=== PATIENT | male | born 1955 | race Caucasian/White ===

== ENCOUNTER → 2019-07-23 09:42 | Outpatient (CLI) | payer MEDICARE, SELFPAY ==
--- NOTE | ~2019-07-23 | XR_ITS ---
EXAMINATION: XR chest 2V EXAM DATE: 07/23/2019 09:56 INDICATION: Productive cough. Wheezing. TECHNIQUE: Frontal and lateral projections of the chest obtained and reviewed. Comparison is made to prior examination from 09/24/2014. FINDINGS: Mild cardiomegaly. Coronary artery stent. There is no pneumothorax suspected. There are no pleural effusions. There are no osseous abnormalities identified. There is no focal acute air space disease. IMPRESSION: 1. Mild cardiomegaly. Reviewed, dictated and finalized at location B. CARE SPECIALIST IMPRESSION: 1. Mild cardiomegaly.
== END ==
PROVIDERS: PCP Family Medicine; Visit Provider Family Medicine
DX: I51.7 Cardiomegaly (principal); R05 Cough
CPT/HCPCS: 71046

== ENCOUNTER → 2020-05-20 10:21 | Outpatient (CLI) | payer MEDICARE, SELFPAY ==
--- NOTE | ~2020-05-20 | CT_ITS ---
EXAMINATION: CT lung screening DATE: 05/20/2020 10:38 INDICATION: Personal history of tobacco dependence. Lung cancer screening. TECHNIQUE: Computed tomography (CT) of the chest was performed without intravenous contrast. The dose -length product was 315.14 mGy-cm. Automated exposure control and iterative reconstruction technique were employed. COMPARISON: CT dated 04/18/2019 FINDINGS: There is a cluster of nodules containing calcifications in the left upper lobe adjacent to the fissure, likely granulomatous disease. No significant interval change to these nodules. 3 mm righ t lower lobe nodule, image 78, unchanged. No new pulmonary nodules or masses. No pneumothorax. No sig nificant pleural or pericardial effusion. No thoracic lymphadenopathy. There is atherosclerosis of th e aorta and coronary arteries. No endobronchial lesions. No pneumothorax. Small left lower lobe nodul es measuring 3 mm or less are stable. Heart size is normal. Mild thoracic spondylosis. IMPRESSION: 1. Lung-RADS category 2: Benign appearance or behavior. Continue annual screening with noncontrast lo w-dose chest CT in 12 months. Reviewed, dictated and finalized at location A. OLE MANAGER IMPRESSION: 1. Lung-RADS category 2: Benign appearance or behavior. Continue annual screeni ng with noncontrast low-dose chest CT in 12 months.
== END ==
PROVIDERS: PCP Family Medicine; Visit Provider Family Medicine
DX: Z12.2 Encounter for screening for malignant neoplasm of respiratory organs (principal); Z87.891 Personal history of nicotine dependence
CPT/HCPCS: G0297

== ENCOUNTER → 2021-05-25 09:12 | Outpatient (CLI) | payer MEDICARE, SELFPAY ==
--- NOTE | ~2021-05-25 | CT_ITS ---
EXAMINATION: CT lung screening DATE: 05/25/2021 09:30 INDICATION: Nicotine dependence TECHNIQUE: Computed tomography (CT) of the chest was performed without intravenous contrast. The dose -length product was 292.62 mGy-cm. Automated exposure control and iterative reconstruction technique were employed. COMPARISON: CT dated 05/20/2020 FINDINGS: No significant pleural or pericardial effusion. Heart size is normal. Small hiatal hernia. No thoracic lymphadenopathy. There are cholecystectomy clips. Otherwise, unremarkable upper abdomen. Stable left fissural nodules measuring 3 mm or less. Stable subsolid 3 mm right lower lobe nodule. Th ere is a second subsolid nodule in the right lower lobe measuring 4 mm which is unchanged. There is a 2 mm right lower lobe nodule.. No new pulmonary nodules or masses. No endobronchial lesions. No pneu mothorax. There is a stable 3 mm left lower lobe nodule. Mild thoracic spondylosis. No focal lytic or blastic lesions. IMPRESSION: 1. Lung-RADS category 2: Benign appearance or behavior. Continue annual screening with noncontrast lo w-dose chest CT in 12 months. Reviewed, dictated and finalized at location B. SAW OPERATOR HELPER IMPRESSION: 1. Lung-RADS category 2: Benign appearance or behavior. Continue annual screeni ng with noncontrast low-dose chest CT in 12 months.
== END ==
PROVIDERS: PCP Physician Assistant; Visit Provider Physician Assistant
DX: Z12.2 Encounter for screening for malignant neoplasm of respiratory organs (principal); Z87.891 Personal history of nicotine dependence
CPT/HCPCS: 71271

== ENCOUNTER → 2022-07-07 11:26 | Outpatient (CLI) | payer MEDICARE, SELFPAY ==
--- NOTE | ~2022-07-07 | CT_ITS ---
EXAMINATION: CT lung screening DATE: 07/07/2022 11:37 INDICATION: Personal history of nicotine dependence, current smoker with 37 pack year history TECHNIQUE: Computed tomography (CT) of the chest was performed without intravenous contrast. The dose -length product (DLP) was 268.37 mGy-cm. Automated exposure control and iterative reconstruction tech [employer]ave[employer] were employed. COMPARISON: 05/25/2021 FINDINGS: There is mild emphysema. Stable pulmonary nodules in the lower lobes measure up to 3 mm. Th e a chronic calcified nodule is noted in the left upper lobe. Lungs are free of acute opacities. No p leural effusion or pneumothorax. No pathologically enlarged thoracic lymph nodes are identified. The heart size is normal. There is a stable nodule of the left thyroid lobe. Calcified coronary artery at herosclerosis is noted. There is mild thoracic spondylosis. IMPRESSION: 1. Lung-RADS category 2: Benign appearance or behavior. Continue annual screening with noncontrast lo w-dose chest CT in 12 months. Reviewed, dictated and finalized at location B. TOR MECHANIC APPRENTICE IMPRESSION: 1. Lung-RADS category 2: Benign appearance or behavior. Continue annual screeni ng with noncontrast low-dose chest CT in 12 months.
== END ==
PROVIDERS: PCP Family Medicine; Visit Provider Nurse Practitioner
DX: Z12.2 Encounter for screening for malignant neoplasm of respiratory organs (principal); Z87.891 Personal history of nicotine dependence
CPT/HCPCS: 71271

== ENCOUNTER 2023-04-14 09:09 | Emergency (ER) | payer MEDICARE, SELFPAY ==
[2023-04-14 09:25] VITALS: BP 123/70; PULSE 68; RESP 16; TEMP 36.4; O2SAT 96
--- NOTE | 2023-04-14 09:47 | ED.GENADULT ---
HPI - General Adult General Chief complaint: Extremity Problem,Nontraumatic Stated complaint: Leg pain Time Seen by Provider: 04/14/23 09:34 Source: patient and RN notes reviewed Mode of arrival: ambulatory Limitations: no limitations History of Present Illness HPI narrative: Patient presents today complaining of right lateral calf pain that radiates to his toes and up to the right buttocks. Symptoms began 2 days ago. Denies numbness or tingling. Denies loss of bowel bladder control. Patient rates his pain 7/10 and has tried no medication for symptoms prior to arrival as he states, ?I did not think it would help.? Related Data Allergies Allergy/AdvReac Type Severity Reaction Status Date / Time No Known Allergies Allergy Verified 04/14/23 09:19 Review of Systems Review of Systems: CONSTITUTIONAL: Denies body aches, fever, chills, or sweats. EYES: Denies visual changes, redness, or discharge. ENT: Denies rhinorrhea, congestion, sore throat, or otalgia. CARDIOVASCULAR: Denies chest pain, palpitations, or edema. RESPIRATORY: Denies cough or dyspnea. GASTROINTESTINAL: Denies abdominal pain, nausea, vomiting, or diarrhea. GENITOURINARY: Denies dysuria or hematuria. SKIN: Denies rash, itching, or wounds. MUSCULOSKELETAL: + right calf pain NEUROLOGIC: Denies headache, numbness, tingling, or weakness. PSYCH: Denies depression or anxiety. [facility] Past Medical History Medical History Hepatitis C antibody test negative (07/30/17) Surgical History Surgical History H/O cardiac catheterization H/O colonoscopy Hx of cholecystectomy (~2017) Family History Family History Father Patient's father is , Onset Age: 44 Family history of cardiovascular disease Acute myocardial infarction Sibling Family history of elevated blood lipids Social History Social History Smoking packs per day: 0.5 Smoking cigarettes per day: 10.0 Smoking status: Current every day smoker Tobacco type: cigarettes Alcohol intake: current Drinks per week: 2 Alcohol use details: 1-2 drinks per week Drinks Rum Substance use: current Substance use type: marijuana Other substance usage details: socially smokes marijuana Lack of Transportation: No Lack of Food: Never True Current Housing: I Have Housing Concerned About Future Housing: No Difficulty Paying Gas/Electric Bills: No Difficulty Paying for Meds: No Currently Unemployed: No Education: High School Diploma/GED Difficulty w/ Childcare or Family Care: No Living arrangements: with family Additional living arrangements comments: With Spiritual care concerns: No Agree to blood products: Yes Comments At time of signature, I have reviewed and agree with nursing past medical, surgical, social and family history unless otherwise noted. Please see nursing chart for further information. There is no relevant family history pertinent to the presenting complaint Exam Narrative: GENERAL: Well-appearing, well-nourished, and in no acute distress. HEAD: Normocephalic, atraumatic. EYES: EOMI. No redness or drainage. Conjunctivae normal. ENT: Mucous membranes pink and moist. NECK: Normal AROM. CHEST: No respiratory distress. EXTREMITIES: Areas of point tenderness to the lateral calf in a dermatomal distribution of the sciatic nerve that extends proximally to the posterior thigh up to the right SI joint. Distal sensation intact. Saddle sensation intact. Capillary refill normal. Pedal pulses normal. Full range of motion of the hip, knee, and ankle. Negative Homans. No edema, erythema, ecchymosis, or otherwise color change of the right leg. The remainder of the right calf is nontender with the exception
== END 2023-04-14 10:02 | disposition home or self-care (01) ==
PROVIDERS: Emergency Provider Nurse Practitioner; PCP Family Medicine
DX: M54.31 Sciatica, right side (principal); F17.210 Nicotine dependence, cigarettes, uncomplicated; F12.90 Cannabis use, unspecified, uncomplicated
CPT/HCPCS: 99213; G0463

== ENCOUNTER 2023-04-20 09:49 | Emergency (ER) | payer MEDICARE, SELFPAY ==
[2023-04-20 09:57] VITALS: BP 135/69; PULSE 74; RESP 16; TEMP 36.4; O2SAT 96
--- NOTE | 2023-04-20 09:58 | ED.GENADULT ---
HPI - General Adult General Chief complaint: Extremity Problem,Nontraumatic Stated complaint: Right Hip and leg/foot pain Source: patient and RN notes reviewed History of Present Illness HPI narrative: 67-year-old male presents to urgent care with right lateral calf pain that radiates down and up his lateral leg. Patient was seen 6 days ago in urgent care for the same thing and given prednisone and cyclobenzaprine at that time with a dx of sciatica. Patient was also seen at his primary care physician's office 2 days ago for this and was referred to physical therapy which he starts tomorrow morning. Pt states he finished his steroid yesterday morning and his pain returned last night. Denies any new injury or trauma. Denies any fevers, chills, incontinence of urine or stool, weakness, saddle anesthesia, chest pain, SOB, or vomiting. Related Data Home Medications Medication Instructions Recorded Confirmed icosapent ethyl 1 gram capsule 2 g PO BID 04/18/23 04/20/23 (Vascepa) Allergies Allergy/AdvReac Type Severity Reaction Status Date / Time No Known Allergies Allergy Verified 04/20/23 09:54 Review of Systems Review of Systems: Pertinent positives and pertinent negatives per HPI. [facility] Past Medical History Medical History Hepatitis C antibody test negative (07/30/17) Surgical History Surgical History H/O cardiac catheterization H/O colonoscopy Hx of cholecystectomy (~2016) Family History Family History Father Patient's father is , Onset Age: 44 Family history of cardiovascular disease Acute myocardial infarction Sibling Family history of elevated blood lipids Social History Social History (Updated 04/18/23 @ 11:04 by Asuncion Nunes MA) Smoking packs per day: 0.5 Smoking cigarettes per day: 10.0 Smoking status: Current every day smoker Tobacco type: cigarettes Alcohol intake: current Alcohol use details: 1 or 2 a month Substance use: current Substance use type: marijuana Other substance usage details: socially smokes marijuana Lack of Transportation: No Lack of Food: Never True Current Housing: I Have Housing Concerned About Future Housing: No Difficulty Paying Gas/Electric Bills: No Difficulty Paying for Meds: No Currently Unemployed: No Education: High School Diploma/GED Difficulty w/ Childcare or Family Care: No Living arrangements: with family Additional living arrangements comments: With Spiritual care concerns: No Agree to blood products: Yes Comments At the time of my signature, I reviewed and agree with the nursing past medical, surgical, social, and family history. There is no relevant family history pertinent to the patient complaint. Exam Narrative: GENERAL: This is a well-nourished, well-developed patient, in no apparent distress. HEAD: normocephalic, atraumatic. EYES: Sclera clear/white. Vision is grossly intact. EARS: External ears normal, auditory canals clear and without drainage. Hearing grossly intact. NOSE: External nose normal with no obvious nasal discharge, nares without redness, no rhinorrhea. THROAT: Mucous membranes moist, posterior pharynx clear. NECK: Neck supple, non-tender without lymphadenopathy, masses or thyromegaly. CARDIOVASCULAR: Regular rate RESPIRATORY: No respiratory distress SKIN: warm, intact with no suspicious lesions or rash, good texture and turgor. NEURO: awake, alert, and oriented to person, place and time. There were no obvious focal neurologic abnormalities. EXTREMITIES: No clubbing, cyanosis, or edema. No joint tenderness, effusion, or edema noted. no posterior calf pain. BACK: Nontender without deformity or crepitus. No flank tenderness. Course Course Level of Care: [facility] Care Visit Vi
== END 2023-04-20 10:21 | disposition home or self-care (01) ==
PROVIDERS: Emergency Provider Nurse Practitioner Family; PCP Family Medicine
DX: M54.31 Sciatica, right side (principal); F17.210 Nicotine dependence, cigarettes, uncomplicated; F12.90 Cannabis use, unspecified, uncomplicated
CPT/HCPCS: 99213; G0463

== ENCOUNTER 2023-08-08 14:01 | Outpatient (CLI) | payer MEDICARE, SELFPAY ==
--- NOTE | ~2023-08-08 | CT_ITS ---
EXAMINATION: CT lung screening DATE: 08/08/2023 14:32 INDICATION: Z87.891 - Personal history of nicotine dependence TECHNIQUE: Computed tomography (CT) of the chest was performed without intravenous contrast. Addition al 3D reconstructions utilizing coronal maximum intensity projection (MIP) were performed. Automated exposure control and iterative reconstruction technique were employed. The dose-length product was 25 9.72 mGy-cm. COMPARISON: Chest CT dated 07/07/2022 FINDINGS: Mild emphysema. There are a couple calcified nodules in the left lung along with calcified left hilar lymph nodes consistent with old granulomatous disease. There are multiple tiny satellite nodules elzbieta rounding one of these calcified nodules at the lingula. Multiple additional small unchanged bilateral noncalcified pulmonary nodules the largest measuring 5 mm in the right lower lobe. No new or enlargi ng pulmonary nodules identified. No pneumonia, pulmonary edema or pleural effusion. Heart size is nor mal. Atherosclerotic coronary artery calcifications. No pericardial effusion. Thoracic aorta is bigg l in caliber. No pathologically enlarged thoracic lymphadenopathy. Small sliding-type hiatal hernia. Cholecystectomy clips the gallbladder fossa. Mild thoracic spondylosis. IMPRESSION: 1. Lung-RADS category 2: Benign appearance or behavior. Continue annual screening with noncontrast lo w-dose chest CT in 12 months. Reviewed, dictated and finalized at location A. MBLING MOTOR BUILDER IMPRESSION: 1. Lung-RADS category 2: Benign appearance or behavior. Continue annual screeni ng with noncontrast low-dose chest CT in 12 months.
--- NOTE | ~2023-08-08 | US_ITS ---
EXAMINATION: US arterial ankle brachial ind DATE: 08/08/2023 15:09 INDICATION: Peripheral vascular disease TECHNIQUE: Segmental pressures and plethysmographic and Doppler waveforms of the brachial and lower e xtremity arteries were obtained. COMPARISON: None. FINDINGS: Right and left brachial artery pressures of 126 mm Hg and 120 mm Hg, respectively, are concordant (no rmal difference <= 30 mmHg). The right ankle-brachial index (JYOTSNA) is 1.27 (normal >= 0.9-1.0). The right great toe-brachial index (TBI) is 0.43 (normal >= 0.65). Arterial Doppler waveforms are biphasic with brisk systolic upstrokes at both right posterior tibial and dorsalis pedis arteries. The left JYOTSNA is 1.16. The left TBI is 0.34. Arterial Doppler waveforms are biphasic with brisk systol ic upstrokes at both left posterior tibial and dorsalis pedis arteries. IMPRESSION: 1. Arterial occlusive disease to bilateral lower limbs with normal bilateral ABIs but mildly decrease d right and moderately decreased left TBIs. Reviewed, dictated and finalized at location A. LEAD APPLICATION TESTING IMPRESSION: 1. Arterial occlusive disease to bilateral lower limbs with normal bilateral AB Is but mildly decreased right and moderately decreased left TBIs.
== END 2023-08-08 14:02 | disposition home or self-care (01) ==
PROVIDERS: PCP Family Medicine; Visit Provider Nurse Practitioner
DX: Z12.2 Encounter for screening for malignant neoplasm of respiratory organs (principal); Z87.891 Personal history of nicotine dependence; I73.9 Peripheral vascular disease, unspecified
CPT/HCPCS: 71271; 93922

== ENCOUNTER 2023-11-23 14:48 | Outpatient (CLI) | payer MEDICARE, SELFPAY ==
--- NOTE | 2023-11-23 15:25 | ECG_ITS ---
SEE SCANNED COPY FOR CONFIRMED REPORT MTDD
== END 2023-11-23 14:49 | disposition home or self-care (01) ==
LOC: ANHCARD 14:52
PROVIDERS: PCP Family Medicine; Visit Provider Family Medicine
DX: Z01.810 Encounter for preprocedural cardiovascular examination (principal); E78.2 Mixed hyperlipidemia; I70.90 Unspecified atherosclerosis; E66.9 Obesity, unspecified; F17.210 Nicotine dependence, cigarettes, uncomplicated
CPT/HCPCS: 93005

== ENCOUNTER 2024-01-23 08:18 | Outpatient (CLI) | payer MEDICARE, SELFPAY ==
--- NOTE | ~2024-01-23 | NM_ITS ---
EXAMINATION: NM kathrin stress w perfusion DATE: 01/23/2024 11:33 INDICATION: Other forms of dyspnea. Coronary atherosclerosis. TECHNIQUE: Rest images were obtained following intravenous administration of 9.1 mCi Tc99m tetrofosmi n (Myoview). The patient was infused intravenously with Lexiscan (regadenoson). Then, 29.5 mCi Tc99m tetrofosmin (Myoview) was administered intravenously, and stress images were obtained. Data was recon structed into short axis and horizontal and vertical long axis SPECT images. Gated SPECT images were also obtained. COMPARISON: Chest CT 08/08/2023 FINDINGS: There is no definite reversible or fixed perfusion abnormality to suggest ischemia or infar ction. There is no segmental wall motion abnormality. Left ventricular ejection fraction measures 7 0%. IMPRESSION: 1. No definite ischemia or infarct. 2. Normal left ventricular ejection fraction measuring 70%. Reviewed, dictated and finalized at location A.
--- NOTE | 2024-01-23 08:56 | ECHO_ITS ---
Patient Info Name: David Youssef Age: 68 years : 1955 Gender: Male Ht: 71 in Wt: 250 lbs BSA: 2.42 m2 HR: 55 bpm BP: 116 / 71 mmHg Technical Quality: Good Exam Date: 01/23/2024 9:03 AM Exam Location: Echo Lab Patient Status: Outpatient Admit Date: 01/23/2024 Staff Ordering Physician: Scot Perkins DO Organizational Psychologist: Lorri Hoffman RDCS Attending Provider: Scot Perkins DO Referring Physician: Gregorio SLAES; Exam Type: CA echo doppler color flow Study Info Indications R06.09 - Other forms of dyspnea Complete two-dimensional, color flow and Doppler transthoracic echocardiogram is performed. Strain analysis performed. Summary 1. Complete two-dimensional, color flow and Doppler transthoracic echocardiogram is performed. 2. Left ventricular chamber dimension is normal. 3. Left ventricular systolic function is normal, estimated at 60-65%. 4. There is mildly increased left ventricular wall thickness. 5. The left ventricular diastolic function is abnormal. 6. E/e' 11 is mildly elevated. 7. Global longitudinal strain is slightly abnormal at -16.7%. 8. Left atrial chamber dimension is mildly enlarged. 9. There is mild aortic valve sclerosis. 10. No pulmonary hypertension, estimated pulmonary arterial systolic pressure is 15 mmHg. 11. There is trace pulmonic regurgitation. Left Ventricle E/e' 11 is mildly elevated. Global longitudinal strain is slightly abnormal at -16.7%. Left ventricular chamber dimension is normal. Left ventricular systolic function is normal, estimated at 60-65%. There is mildly increased left ventricular wall thickness. The left ventricular diastolic function is abnormal. Right Ventricle Right ventricular chamber dimension is normal. Right ventricular systolic function is normal. Left Atria Left atrial chamber dimension is mildly enlarged. Right Atria Right atrial chamber dimension is normal. Aortic Valve The aortic valve is trileaflet. There is mild aortic valve sclerosis. There is no aortic valve stenosis. There is no aortic valve regurgitation. Pulmonic Valve There is trace pulmonic regurgitation. Mitral Valve There is no mitral valve stenosis. There is no mitral valve regurgitation. Tricuspid Valve There is no tricuspid valve regurgitation. No pulmonary hypertension, estimated pulmonary arterial systolic pressure is 15 mmHg. Pericardium/Pleural There is no pericardial effusion. Inferior Vena Cava Normal inferior vena cava with >50% collapse upon inspiration consistent with normal right atrial pressure, 5 mmHg. Aorta The aortic root size at the sinus of Valsalva is normal. Left Ventricular Outflow Tract Name Value Normal LVOT 2D LVOT Diameter 2.0 cm LVOT Doppler LVOT Peak Gradient 5 mmHg LVOT Mean Gradient 2 mmHg LVOT VTI 22 cm LVOT VTI/AV VTI Ratio 0.8 LVOT Stroke Volume 69 ml LVOT CO 3.6 l/min LVOT CI 1.5 l/min/m2 Pulmonic Valve Name
--- NOTE | 2024-01-23 08:57 | EST_ITS ---
Patient Info Name: David Youssef Age: 68 years : 1955 Gender: Male Ht: 70 in Wt: 250 lbs BSA: 2.41 m2 HR: 50 bpm BP: 121 / 59 mmHg Heart Rhythm: Sinus Rhythm Exam Date: 01/23/2024 10:26 AM Exam Location: Echo Lab Patient Status: Outpatient Admit Date: 01/23/2024 Staff Ordering Physician: Scot Perkins DO Attending Provider: Scot Perkins DO Exercise Technologist: Debby Gray CT Exercise Physician: Scot Perkins DO Exam Type: CA stress kathrin w NM Study Info Indications R06.09 - Other forms of dyspnea A persantine stress test was performed. Summary 1. 1. Negative lexiscan stress test for ischemic ST changes by ECG criteria. 2. 2. Stable hemodynamics throughout the test. 3. 3. Nuclear scan to follow and will be reported separately. Please correlate with it. 4. 4. Patient informed of the above results. Protocol: Lexiscan Stress ECG Details Stage: REST Duration (min): 1 min : 3 sec HR (bpm): 51 SBP (mmHg): 121 DBP (mmHg): 59 Stage: REST Duration (min): 15 min : 59 sec HR (bpm): 50 SBP (mmHg): 121 DBP (mmHg): 59 Stage: STAGE 1 Duration (min): 0 min : 59 sec HR (bpm): 49 SBP (mmHg): 111 DBP (mmHg): 61 Stage: RECOVERY Duration (min): 1 min : 0 sec HR (bpm): 72 SBP (mmHg): 111 DBP (mmHg): 61 Stage: RECOVERY Duration (min): 2 min : 0 sec HR (bpm): 71 SBP (mmHg): 111 DBP (mmHg): 61 Stage: RECOVERY Duration (min): 3 min : 0 sec HR (bpm): 69 SBP (mmHg): 133 DBP (mmHg): 55 Stage: RECOVERY Duration (min): 3 min : 5 sec HR (bpm): 69 SBP (mmHg): 133 DBP (mmHg): 55 Rest HR: 50 bpm Peak HR: 72 bpm Rest Sys BP: 121 mmHg Peak Sys BP: 133 mmHg Max Pred HR: 150 bpm % Max Pred HR: 48 % Target HR: 128 bpm Max RPP: 9,576 bpm*mmHg Termination Reason: Completed protocol Cardiac Symptoms: Shortness of breath, Abdominal discomfort Total Time: 1 min : 0 sec Rest Catherine BP: 59 mmHg Peak Catherine BP: 55 mmHg Total Dose: 0.4 mg Resting ECG Sinus bradycardia, RBBB. Stress ECG No ST changes. Arrhythmias None. Report Signatures
== END 2024-01-23 08:19 | disposition home or self-care (01) ==
PROVIDERS: PCP Family Medicine; Visit Provider Internal Medicine Cardiovascular Disease
DX: Z01.810 Encounter for preprocedural cardiovascular examination (principal); R06.09 Other forms of dyspnea; I35.8 Other nonrheumatic aortic valve disorders
CPT/HCPCS: 78452; 93017; 93306; A9502; J2785

== ENCOUNTER 2024-07-16 11:17 | Emergency (ER) | payer MEDICARE, SELFPAY ==
--- NOTE | ~2024-07-16 | US_ITS ---
EXAMINATION: US scrotum doppler DATE: 07/16/2024 12:07 INDICATION: Right testicular pain and swelling. TECHNIQUE: Grayscale and Doppler ultrasound images of the testes were obtained. COMPARISON: None. FINDINGS: The right testis measures 4.2 x 2.2 x 3.6 cm. The left testis measures 4.8 x 2.1 x 4.2 cm. There is normal vascular flow to both testes. The right epididymis is normal with normal vascular sue w. The left epididymis is normal with normal vascular flow. There are small bilateral hydroceles. IMPRESSION: 1. Small bilateral hydroceles. Reviewed, dictated and finalized at location B. [facility]
[2024-07-16 11:26] VITALS: BP 120/66; PULSE 59; RESP 16; TEMP 36.4; O2SAT 100
--- NOTE | 2024-07-16 11:45 | ED.GENADULT ---
HPI - General Adult General Chief complaint: Urogenital-Male Stated complaint: testicular swelling Time Seen by Provider: 07/16/24 11:26 History of Present Illness HPI narrative: 69-year-old male presenting to the emergency department for evaluation for testicular swelling and tenderness this been ongoing since April. Patient denies any specific incident of falls or injury. Patient describes the pain as a 4/10. Patient states the pain did not acutely worsened but simply it was time to get it checked out so he presented emergency department for evaluation. Patient denies any prior history of testicular torsion, hydrocele varicocele. Patient denies any prior history of hernias. At time of evaluation patient does not appear to be in any distress. Related Data Home Medications ?Medication ?Instructions ?Recorded ?Confirmed ?Last Taken ?Type aspirin 81 mg tablet 81 mg PO DAILY 11/23/23 06/13/24 Unknown History atorvastatin 40 mg tablet 40 mg PO DAILY 11/23/23 06/13/24 Unknown History cetirizine 10 mg tablet 10 mg PO DAILY 11/23/23 06/13/24 Unknown History coQ10 (ubiquinol) 200 mg capsule 200 mg PO DAILY 11/23/23 06/13/24 Unknown History mometasone 50 mcg/actuation nasal See Rx Instructions .Route 11/23/23 06/13/24 Unknown History spray .COMPLEX PRN Congestion omega-3 fatty acids 300 mg PO BID 11/23/23 06/13/24 Unknown History vitamin B complex 1 cap PO DAILY 11/23/23 06/13/24 Unknown History Allergies Allergy/AdvReac Type Severity Reaction Status Date / Time No Known Allergies Allergy Verified 07/16/24 11:17 Review of Systems Review of Systems: All systems reviewed & are unremarkable except as noted in HPI and below PMFSH Past Medical History Medical History Hepatitis C antibody test negative (07/30/17) Surgical History Surgical History H/O cardiac catheterization Hx of cholecystectomy (~2017) H/O colonoscopy Family History Family History Father Patient's father is , Onset Age: 44 Family history of cardiovascular disease Acute myocardial infarction Sibling Family history of elevated blood lipids Social History Social History Smoking packs per day: 0.5 Smoking cigarettes per day: 10.0 Years smoked: 53 Smoking pack-years: 26.50 Smoking status: Current every day smoker Tobacco type: cigarettes Alcohol intake: current Drinks per week: 1 Alcohol use details: BEERS Substance use: current Substance use type: marijuana Other substance usage details: COUPLE TIMES A WEEK Lack of Transportation: No Lack of Food: Never True Current Housing: I Have Housing Concerned About Future Housing: No Difficulty Paying Gas/Electric Bills: No Difficulty Paying for Meds: No Currently Unemployed: No Education: High School Diploma/GED Difficulty w/ Childcare or Family Care: No Living arrangements: with family Additional living arrangements comments: With Spiritual care concerns: No Agree to blood products: Yes Exam Narrative: APPEARANCE: Well appearing, no pain, no distress, well-nourished. HEAD: normocephalic, atraumatic. EYES: PERRLA/EOMI, conjunctivae clear. NOSE: Normal no drainage EARS:TMS clear with good light reflex. THROAT: Pharynx clear, no exudate. NECK: Supple. No adenopathy, no masses. RESPIRATORY: Airway patent, respirations nonlabored. Clear to auscultation bilaterally, no rales, rhonchi, wheezing. CARDIOVASCULAR: Regular rate and rhythm without murmurs rubs or gallops. ABDOMINAL: Soft, nontender, nondistended, normal bowel sounds MUSCULOSKELETAL: Moves all extremities. Strength/ROM intact, No edema, No calf tenderness. NEURO: Alert. Cranial nerves II through XII intact. Good gait. Good coordination SKIN: Warm, dry. Normal Color Genital exam: Mild fullness the right scrotum with no palpated bowel, mild tenderness to palpation, no high-riding testicle on the right no evidence of scrotal cellulitis. Course Vital Signs Vital signs: Vital Signs Temperature 97.6 F 07/16/24 11:26 Pulse Rate 59 L 07/16/24 11:26 Respiratory Rate 16 07/16/24 11:26 Blood Pressure 120/66 07/16/24 11:26 Pulse Oximetry 100 07/16/24 11:26 Oxygen Delivery Room Air 07/16/24 11:26 Temperature 97.7 F 07/16/24 12:52 Pulse Rate 55 L 07/16/24 12:52 Respiratory Rate 16 07/16/24 12:52 Blood Pressure 120/61 07/16/24 12:52 Pulse Oximetry 100 07/16/24 12:52 Oxygen Delivery Room Air 07/16/24 11:26 Medical Decision Making MDM Narrative Medical decision making narrative: 69-year-old male presents to the emergency department for evaluation for bilateral testicular swelling worse on the right than left. No evidence of testicular torsion. No evidence scrotal cellulitis. Ultrasound was positive for bilateral hydroceles. Low concern for testicular torsion. Differential Diagnosis Differential Diagnosis: Hydrocele, varicocele, testicular torsion, epididymitis, hernia Vital Signs Vital Signs: Vital Signs Temperature 97.6 F 07/16/24 11:26 Pulse Rate 59 L 07/16/24 11:26 Respiratory Rate 16 07/16/24 11:26 Blood Pressure 120/66 07/16/24 11:26 Pulse Oximetry 100 07/16/24 11:26 Oxygen Delivery Room Air 07/16/24 11:26 Temperature 97.7 F 07/16/24 12:52 Pulse Rate 55 L 07/16/24 12:52 Respiratory Rate 16 07/16/24 12:52 Blood Pressure 120/61 07/16/24 12:52 Pulse Oximetry 100 07/16/24 12:52 Oxygen Delivery Room Air 07/16/24 11:26 Imaging Data Radiologist's impression: Impressions Scrotum Ultrasound 07/16/24 12:15 IMPRESSION: 1. Small bilateral hydroceles. Discharge Plan Discharge Clinical Impression: Bilateral hydrocele Patient Disposition: Home, Self-Care Condition: Stable Instructions: Antibiotic Form, Hidrocele (ED) Additional Instructions: Tylenol and ibuprofen for pain control. Wear tight-fitting undergarments to increase scrotal support. Have close follow-up with Urology. If you have any worsening symptoms then please call or return to the emergency department. Patient Language: French Prescriptions: No Action cetirizine 10 mg Tablet 10 mg PO DAILY aspirin 81 mg Tablet 81 mg PO DAILY vitamin B complex [B Complex] Capsule 1 cap PO DAILY [place] 3 Fish Oil Capsule 300 mg PO BID coQ10 (ubiquinol) 200 mg Capsule 200 mg PO DAILY atorvastatin 40 mg tablet 40 mg PO DAILY Rx Instructions: Take 1 tablet by mouth once daily mometasone 50 mcg/actuation spray,non-aerosol See Rx Instructions .ROUTE .COMPLEX PRN (Reason: Congestion) Rx Instructions: USE 2 SPRAY(S) IN EACH NOSTRIL ONCE DAILY NEEDED FOR NASAL CONGESTION escitalopram oxalate 10 mg tablet 10 mg PO ONCE Qty: 90 1RF clopidogrel 75 mg tablet 75 mg PO DAILY Qty: 90 1RF Rx Instructions: Take 1 tablet by mouth once daily icosapent ethyl [Vascepa] 1 gram capsule 2 g PO BID Qty: 360 1RF Dose Instruction: Take 1 capsule by mouth twice daily Rx Instructions: Take 2 capsule by mouth twice daily metoprolol succinate 50 mg tablet extended release 24 hr 50 mg PO HS Qty: 90 1RF Rx Instructions: Take 1 tablet by mouth once daily Follow-up/Referrals: Rex Stevens MD [Physician] - Brooke Ernst DO [Primary Care Provider] -
[2024-07-16 12:52] VITALS: BP 120/61; PULSE 55; RESP 16; TEMP 36.5; O2SAT 100
== END 2024-07-16 12:53 | disposition home or self-care (01) ==
PROVIDERS: Emergency Provider Emergency Medicine; PCP Family Medicine
DX: N43.3 Hydrocele, unspecified (principal); F17.210 Nicotine dependence, cigarettes, uncomplicated; Z90.49 Acquired absence of other specified parts of digestive tract; Z79.02 Long term (current) use of antithrombotics/antiplatelets; Z79.82 Long term (current) use of aspirin; Z79.899 Other long term (current) drug therapy
CPT/HCPCS: 76870; 93976; 99284

== ENCOUNTER 2024-07-17 08:53 | Outpatient (CLI) | payer MEDICARE, SELFPAY | END 2024-07-17 08:54 | disposition home or self-care (01) | LOC: ANHAUDASC 08:54 | PROVIDERS: PCP Family Medicine; Visit Provider Nurse Practitioner | DX: H90.3 Sensorineural hearing loss, bilateral (principal) | CPT/HCPCS: 92557; 92567 ==

== ENCOUNTER 2024-09-13 01:51 | Day surgery (SDC) | payer MEDICARE, SELFPAY ==
[2024-09-04 12:06] VITALS: BMI 34.8
--- NOTE | 2024-09-04 12:24 | PC.NURSE ---
Spoke with patient regarding medication Clopidogrel. Patient verbalizes understanding that the last dose is to be taken on 09/05/2024 and the Endoscopist will instruct them when to restart after the procedure.
--- OUTSIDE RECORDS SUMMARY | 2024-09-13 01:54 | XMS_ITS | Continuity of Care Document ---
Author Organization [facility] Address [address] [place] [address] Phone Care Team Providers Care Practice Physician Name Role Phone Flex PT,MPT,ATC, Memo Unavailable Unavai lable Procedures Procedure Date Therapeutic Activities Neuromuscular Re-Ed Therapeutic Exercise Therapeutic Activities Neuromuscular Re-Ed Therapeutic Exercise Manual Therapy Doc neg elder mal no plan PT Evaluation Moderate Complexity Therapeutic Activities Neuromuscular Re-Ed Manual Therapy Doc neg elder mal no plan PT Evaluation Moderate Complexity Neuromuscular Re-Ed Therapeutic Exercise Advance Directives Directive Yes / No Effective Date File Name No Information Encounters Encounter Description Practice Location Reason(s) For Visit Diagnoses Date Provider Providers Copied on Encounter [facility], [place], [place], [id number], tel:[phone] [place] No Information 4 DON [place], [place]. [facility], [place], [place], [address], tel:[phone] [place] No Information 4 DON [place], [place]. Referring Provider: Shena Schmitt, [address] [place], [place] [address], [address]. tel:[phone] [facility], [address] [address], [place], [place], [id number], tel:[phone] [place] No Information 4 [place], . Referring Provider: Shena Schmitt, [address] [place] [address], [place], [address]. tel:[phone] [facility] [address] [address], [place], [place], [id number], tel:[phone] [place] No Information 4 [facility] [place] . Referring Provider: Shena Schmitt, [address] [place], [place] [address], [address]. tel:[phone] [facility], [address] [address], [place], [place], [id number], tel:[phone] [place] No Information 3 Omid Reynolds. . Referring Provider: Brooke Ernst, [address] [place] [address] [place], [address]. tel:[phone] Family History Family Member Type Diagnosis Age At Onset No Information Payers Payer name Insurance type Covered alliance party ID Grant ford(s) [employer] Medicare Replacement CI [id number] Social History Type Description Quantity Date Captured Comments Sex Male Smoking Status No Information Chief Complaint And Reason For Visit No Information Reason For Referral Reason For Referral No Information History Of Present Illness Encounter Date Complaint History Of Prese nt Illness No Information Functional Status Date Functional Assessmen t No Information Instructions Date Instruction Additional Infor mation Giving encouragement to exercise Related to Overweight Giving encouragement to exercise Related to Overweight Assessments Type Assessment Date No Information Patient Care Teams Name Effective Dates (start - stop) Status Members No Information
--- OUTSIDE RECORDS SUMMARY | 2024-09-13 01:54 | XMS_ITS | Clinical Summary ---
Author Organization [facility] Address [facility] [place] [address] Care Team Providers Care Palliative Senior Np Name Role Phone Moshe Nicole MD Primary Care Provider Source Comments [facility],non-owned Affiliates and Associated Physician Practices is amultiple site organization consisting of ambulatory clinics and hospital sitesin [place], [place], [place] and [place]. This disclosure is being madepursuant to the Care Everywhere program and may not contain all information available regarding this patient. Last updated [employer] [facility] Allergies No known active allergies Medications * Be aware that medications may not be up to date on this document. Alwaysverify current medications with the patient. Medication Sig Dispensed Refills Start Date End Date Status metoprolol succinate XL 24hr (TOPROL XL) 50 MG tablet Take 50 mg by mouth once daily Active FENOFIBRATE PO Take 200 mg by mouth Active ASPIRIN 81 PO Active Coenzyme Q10 (CO Q 10) 100 MG Active clopidogrel (PLAVIX) 75 MG tablet Take 75 mg by mouth once daily Active Glucosamine-Chondroit- Vit C-Mn (GLUCOSAMINE 1500 COMPLEX) CAPS Active [place]-3 Fatty Acids (FISH OIL BURP-LESS) 1000 MG Active escitalopram (LEXAPRO) 10 MG tablet Take 10 mg by mouth once daily Active atorvastatin (LIPITOR) 20 MG tablet Take 20 mg by mouth at bedtime Active cetirizine (ZYRTEC) 10 MG tablet Take 10 mg by mouth once daily Active Social History Tobacco Use Types Packs/Day Years Used Date Smoking Tobacco: Every Day Cigarettes Smokeless Tobacco: Never Tobacco Cessation:Ready to Q uit: No; Counseling Given: Yes Sex and Gender Information Value Date Recorded Sex Assigned at Not on file Gender Identity Not on file Sexual Orientation Not on file Last Filed Vital Signs Vital Sign Reading Time Taken Comments Blood Pressure 108/64 12/20/2020 11:08 AM CDT Pulse 54 12/20/2020 11:08 AM CDT Temperature 36.6 C (97.9 F) 12/20/2020 11:08 AM CDT Respiratory Rate 18 12/20/2020 11:08 AM CDT Oxygen Saturation 96% 12/20/2020 11:08 AM CDT Inhaled Oxygen Concentration - - Weight 95.3 kg (210 lb) 12/20/2020 11:08 AM CDT Height 177.8 cm (5' 10 ) 12/20/2020 11:08 AM CDT Body Mass Index 30.13 12/20/2020 11:08 AM CDT Plan of Treatment Health Maintenance Due Date Last Done Comments COLOGUARD (AGES 45-75) - COLON CA SCREENING 1953 COLON MONITORING 1953 COLONOSCOPY - COLON CA SCREENING 1953 CT COLONOGRAPHY - COLON CA SCREENING 1953 Colorectal Cancer Screening 1953 FIT - COLON CA SCREENING 1953 FLEX SIG - COLON CA SCREENING 1953 HEPATITIS C SCREENING 05/03/1971 DTAP/TDAP/TD VACCINES (1 - Tdap) 1972 PNEUMOCOCCAL VACCINE 50+ (1 of 2 - PCV) 1972 ZOSTER VACCINE (1 of 2) 2003 AAA SCREENING 2018 SCREENING FOR DIABETES 12/20/2020 COVID-19 VACCINE ( season) 2024 09/29/2020, 09/02/2020 INFLUENZA VACCINE (#1) 2024 9, 04/05/2018, 04/06/2017, Additional history exists DEPRESSION SCREENING 06/27/2024 MEDICARE AWV CALENDAR YEAR 2024 Respiratory Syncytial Virus (RSV) Vaccine Pt: or over 60 yrs (1 - 1-dose 75+ series) 2028 HEPATITIS B VACCINE Aged Out No longe r eligible based on patient's age to complete this topic HIB VACCINE Aged Out No longer eligi ble based on patient's age to complete this topic HPV VACCINE Aged Out No longer eligi ble based on patient's age to complete this topic MENINGOCOCCAL (Group B) VACCINE SHARED DECISION-MAKING Aged Out No longer eligible based on patient's age to complete this topic MENINGOCOCCAL GROUPS A/C/Y/W VACCINE Aged Out No longer eligible based on patient's age to complete this topic Care Teams Palliative Senior Np Relationship Specialty Start Date End Date Moshe Nicole MD [address] [place] [address] PCP - General Family Medicine 10/10/17
[2024-09-13 08:52] VITALS: BP 126/78; PULSE 73; RESP 18; TEMP 35.7; O2SAT 100; BMI 30.7
[2024-09-13] MEDS: LACTATED RINGERS 1,000 ML 150 ML IV CONT (09:13)
--- NOTE | 2024-09-13 09:14 | P.PNAN_ITS ---
Anes - Initial Pre Proc Eval Procedure: Operation Date: 09/13/24 10:30 Proposed Procedures p Colonoscopy - Scott Molina MD Date/Time: 09/13/24 09:14 Surgeon: Scott Molina MD Pre Op Diagnosis: hx of colon polyps Patient Data Age: 69 Gender: M Height: 1.8 m Weight: 100.1 kg Last Vital Signs Temp 35.7 C L 09/13/24 08:52 Pulse 73 09/13/24 08:52 Resp 18 09/13/24 08:52 BP 126/78 09/13/24 08:52 Pulse Ox 100 09/13/24 08:52 O2 Del Method Room Air 09/13/24 08:52 Allergies Allergy/AdvReac Type Severity Reaction Status Date / Time No Known Allergies Allergy Verified 09/13/24 09:02 Home Medications ?Medication ?Instructions ?Recorded ?Confirmed ?Type aspirin 81 mg tablet 81 mg PO DAILY 11/23/23 09/13/24 History atorvastatin 40 mg tablet 40 mg PO DAILY 11/23/23 09/12/24 History coQ10 (ubiquinol) 200 mg capsule 200 mg PO DAILY 11/23/23 09/13/24 History mometasone 50 mcg/actuation nasal See Rx Instructions .Route 11/23/23 09/13/24 History spray .COMPLEX PRN Congestion omega-3 fatty acids 300 mg PO BID 11/23/23 09/13/24 History vitamin B complex 1 cap PO DAILY 11/23/23 09/13/24 History escitalopram oxalate 10 mg tablet 10 mg PO ONCE #90 tabs 04/09/24 09/13/24 Rx clopidogrel 75 mg tablet 75 mg PO DAILY #90 tabs 05/03/24 09/13/24 Rx icosapent ethyl 1 gram capsule 2 g (2 x 1 gram) PO BID #360 caps 05/11/24 09/13/24 Rx (Vascepa) metoprolol succinate 50 mg 50 mg PO HS #90 tabs 06/28/24 09/13/24 Rx tablet,extended release 24 hr Patient hx anesthesia problems: none Family hx anesthesia problems: none Results Review: All pre-operative results and documents have been reviewed as part of the pre- operative evaluation. [facility]LY [facility], [facility] Past Medical History Medical History Hepatitis C antibody test negative (07/30/17) Surgical History Surgical History H/O cardiac catheterization Hx of cholecystectomy (~2017) H/O colonoscopy Family History Family History Father Patient's father is , Onset Age: 44 Family history of cardiovascular disease Acute myocardial infarction Sibling Family history of elevated blood lipids Social History Social History Smoking packs per day: 0.5 Smoking cigarettes per day: 10.0 Years smoked: 53 Smoking pack-years: 26.50 Smoking status: Current every day smoker Tobacco type: cigarettes Alcohol intake: current Drinks per week: 1 Alcohol use details: BEERS Substance use: current Substance use type: marijuana Other substance usage details: COUPLE TIMES A WEEK Lack of Transportation: No Lack of Food: Never True Current Housing: I Have Housing Concerned About Future Housing: No Difficulty Paying Gas/Electric Bills: No Difficulty Paying for Meds: No Currently Unemployed: No Education: High School Diploma/GED Difficulty w/ Childcare or Family Care: No Living arrangements: with family Additional living arrangements comments: With Spiritual care concerns: No Agree to blood products: Yes Anes - Eval Final PreProcedure Day of Procedure 09/13/24 09:14 Patient weight: obese Heart: regular rate and rhythm Lungs: decreased breath sounds Airway: Mallampati scale class II Neurological: alert and oriented Last oral intake: >/= 8 hours ASA classification: III Emergent: no Anesthetic plan: proceed Anesthesia type and monitoring: general GIVS and standard monitoring Results Review: All pre-operative results and documents have been reviewed as part of the pre- operative evaluation. Informed Consent: The patient's anesthetic plan and its attendant risks and benefits were discussed with the patient/family/POA. Questions were solicited and answers provided to the satisfaction of the patient/family/POA.
--- NOTE | 2024-09-13 09:19 | PM.IMHP ---
H&P: HPI History of Present Illness Date/Time: 09/13/24 09:19 Chief Complaint: History of colon polyps Narrative: The patient has a history of colonic polyps, the last colonoscopy was 7 years ago. Review of Systems Review of Systems: All systems reviewed & are unremarkable except as noted in HPI and below PMFSH Past Medical History Medical History Hepatitis C antibody test negative (07/30/17) Surgical History Surgical History H/O cardiac catheterization Hx of cholecystectomy (~2016) H/O colonoscopy Family History Family History Father Patient's father is , Onset Age: 44 Family history of cardiovascular disease Acute myocardial infarction Sibling Family history of elevated blood lipids Social History Social History Smoking packs per day: 0.5 Smoking cigarettes per day: 10.0 Years smoked: 53 Smoking pack-years: 26.50 Smoking status: Current every day smoker Tobacco type: cigarettes Alcohol intake: current Drinks per week: 1 Alcohol use details: BEERS Substance use: current Substance use type: marijuana Other substance usage details: COUPLE TIMES A WEEK Lack of Transportation: No Lack of Food: Never True Current Housing: I Have Housing Concerned About Future Housing: No Difficulty Paying Gas/Electric Bills: No Difficulty Paying for Meds: No Currently Unemployed: No Education: High School Diploma/GED Difficulty w/ Childcare or Family Care: No Living arrangements: with family Additional living arrangements comments: With Spiritual care concerns: No Agree to blood products: Yes Meds Home Medications and Allergies Home Medications ?Medication ?Instructions ?Recorded ?Confirmed ?Type aspirin 81 mg tablet 81 mg PO DAILY 11/23/23 09/13/24 History atorvastatin 40 mg tablet 40 mg PO DAILY 11/23/23 09/13/24 History coQ10 (ubiquinol) 200 mg capsule 200 mg PO DAILY 11/23/23 09/13/24 History mometasone 50 mcg/actuation nasal See Rx Instructions .Route 11/23/23 09/13/24 History spray .COMPLEX PRN Congestion omega-3 fatty acids 300 mg PO BID 11/23/23 09/13/24 History vitamin B complex 1 cap PO DAILY 11/23/23 09/13/24 History escitalopram oxalate 10 mg tablet 10 mg PO ONCE #90 tabs 04/09/24 09/13/24 Rx clopidogrel 75 mg tablet 75 mg PO DAILY #90 tabs 05/03/24 09/13/24 Rx icosapent ethyl 1 gram capsule 2 g (2 x 1 gram) PO BID #360 caps 05/11/24 09/13/24 Rx (Vascepa) metoprolol succinate 50 mg 50 mg PO HS #90 tabs 06/28/24 09/13/24 Rx tablet,extended release 24 hr Allergies Allergy/AdvReac Type Severity Reaction Status Date / Time No Known Allergies Allergy Verified 09/13/24 09:02 Vital Signs Vital Signs - 24 hr 09/13/24 08:52 Temperature 96.3 F L Pulse Rate 73 Respiratory Rate 18 Blood Pressure 126/78 Pulse Oximetry 100 Oxygen Delivery Room Air Exam Const: General: cooperative and healthy appearing Resp: Effort & Inspection: normal respiratory effort and able to speak in complete sentences Auscultation: clear to auscultation bilaterally Cardio: Rate: regular rate Rhythm: regular rhythm GI: Inspection: normal to inspection GI Palp: No No hepatosplenomegaly present Auscultation: normal bowel sounds Rectal Exam: deferred Skin: General skin exam: normal color Psych: Appearance: grossly normal Mental Status: mental status grossly normal Assessment and Plan Assessment and plan (1) Hx of colonic polyps: Code(s): Z86.010 - Personal history of colon polyps Status: Acute Assessment and Plan: The patient is deemed a good candidate for the procedure. Consent signed. Will proceed.
[2024-09-13 09:40] VITALS: BP 115/66; PULSE 58; RESP 17; O2SAT 97
[2024-09-13 09:50] VITALS: BP 123/67; PULSE 54; RESP 12; O2SAT 97
[2024-09-13 10:00] VITALS: BP 122/64; PULSE 59; RESP 25; O2SAT 97
== END 2024-09-13 10:18 | disposition home or self-care (01) ==
PROVIDERS: PCP Family Medicine; Referring Provider Nurse Practitioner; Visit Provider Internal Medicine Gastroenterology
PROC: 0DJD8ZZ Inspection of Lower Intestinal Tract, Via Natural or Artificial Opening Endoscopic (ICD-10-PCS; CPT 45378; principal; 2024-09-13 10:30)
DX: Z12.11 Encounter for screening for malignant neoplasm of colon (principal); F17.210 Nicotine dependence, cigarettes, uncomplicated; F12.90 Cannabis use, unspecified, uncomplicated; E66.9 Obesity, unspecified; Z68.30 Body mass index [BMI] 30.0-30.9, adult; Z79.82 Long term (current) use of aspirin; Z79.02 Long term (current) use of antithrombotics/antiplatelets; Z98.890 Other specified postprocedural states; Z90.49 Acquired absence of other specified parts of digestive tract; Z98.61 Coronary angioplasty status; Z86.0100 Personal history of colon polyps, unspecified; Z82.49 Family history of ischemic heart disease and other diseases of the circulatory system
CPT/HCPCS: G0105; J2704; J7120